=== PATIENT | female | born 1940 | race African-American/Black ===

== ENCOUNTER 2019-11-27 04:32 | Inpatient (IN) | payer OTHER, MEDICAID ==
[~2019-11-27] VITALS: Ht 165.1 cm; Wt 59.5 kg
[2019-11-27 06:38] LABS: BASOPHILS % 0.6 % (0.0-2.0); EOSINOPHILS % 0.1 % (0.0-5.0); HEMATOCRIT. 38.7 % (36.0-48.0); HEMOGLOBIN. 13.3 g/dL (12.0-16.0); LYMPHOCYTES % 19.9 % (20.0-50.0); MEAN CORPUSCULAR HEMOGLOBIN 29.2 pg (28.0-32.0); MEAN CORPUSCULAR VOLUME 84.8 fL (81.0-99.0); MEAN PLATELET VOLUME 7.4 fl (7.4-10.4); MONOCYTES % 10.9 % (2.0-8.0); NEUTROPHILS % 68.5 % (40.0-76.0); PLATELET 263 x1000/uL (130-400); RED BLOOD CELL COUNT 4.56 mill/uL (4.2-5.4); RED CELL DISTRIBUTION WIDTH 12.6 % (11.6-14.6)
[2019-11-27 06:45] LABS: CHLORIDE 109 mEq/L (98-107)
[2019-11-27 06:50] LABS: ETHANOL BLOOD < 10 mg/dL
[2019-11-27 07:20] LABS: CLARITY URINE CLEAR (CLEAR); COLOR URINE DARK YELLOW (YELLOW); KETONES URINE 2+ (NEGATIVE); LEUKOCYTE ESTERASE URINE NEGATIVE (NEGATIVE); NITRITE URINE NEGATIVE (NEGATIVE); OCCULT BLOOD URINE 1+ (NEGATIVE); PROTEIN URINE 2+ (NEGATIVE); SPECIFIC GRAVITY URINE 1.025 (1.005-1.030)
[2019-11-27 08:51] LABS: *BENZODIAZEPINES SCREEN URINE PRESUMTIVE POSITIVE (NEGATIVE); *COCAINE SCREEN URINE NEGATIVE (NEGATIVE); METHADONE URINE SCREEN NEGATIVE (NEGATIVE); OPIATES URINE SCREEN NEGATIVE (NEGATIVE)
[2019-11-27 08:52] LABS: *AMPHETAMINES SCREEN URINE NEGATIVE (NEGATIVE); *BARBITURATES SCREEN URINE NEGATIVE (NEGATIVE); CANNABINOID URINE SCREEN NEGATIVE (NEGATIVE); PHENCYCLIDINE URINE SCREEN NEGATIVE (NEGATIVE)
[2019-11-27] MEDS ORDERED: HALOPERIDOL LACTATE 5MG/ML VIAL IM ONE ×2 (10:43→10:45)
[2019-11-27] MEDS ORDERED: HALOPERIDOL 5MG TABLET PO ONE (11:30)
[2019-11-27] MEDS ORDERED: ACETAMINOPHEN 650MG SUPP PR PRN (14:15)
[2019-11-27] MEDS ORDERED: ACETAMINOPHEN 325MG TABLET PO PRN (14:15)
[2019-11-27] MEDS ORDERED: MAGNESIUM/ALUMINUM HYDROXIDE/SIMETHICONE 30ML UDC PO PRN (14:15)
[2019-11-27] MEDS ORDERED: DOCUSATE SODIUM 100MG CAPSULE PO PRN (14:15)
[2019-11-27] MEDS ORDERED: ONDANSETRON HCL 4MG/2ML INJ IV PRN (14:15)
[2019-11-27] MEDS ORDERED: IPRATROPIUM/ALBUTEROL 0.5-3(2.5)MG/3ML NEB NEB PRN (14:15)
[2019-11-27] MEDS ORDERED: GUAIFENESIN 200MG/10ML SUGAR FREE UDC PO PRN (14:15)
[2019-11-27] MEDS ORDERED: HYDRALAZINE 20MG/ML VIAL IV PRN (14:15)
[2019-11-27] MEDS ORDERED: LORAZEPAM 0.5MG TABLET PO PRN (14:15)
[2019-11-27] MEDS ORDERED: HYDROCODONE/ACETAMINOPHEN 5/325MG TABLET PO PRN (14:15)
[2019-11-27 15:29] VITALS: BP 164/66
[2019-11-27 16:00] VITALS: BP 157/73
[2019-11-27] MEDS: SODIUM CHLORIDE 0.45% 1,000 ML IV SCH (17:38)
[2019-11-27 20:00] VITALS: BP 88/60
[2019-11-27] MEDS: FAMOTIDINE 20MG TABLET PO SCH (21:10)
[2019-11-28] VITALS: BP 151/87
[2019-11-28 01:02] LABS: CREATINE KINASE MB FRACTION 10.1 ng/mL (0.5-3.6)
[2019-11-28 04:00] VITALS: BP 172/103
[2019-11-28 06:13] LABS: CHLORIDE 107 mEq/L (98-107)
[2019-11-28 06:17] LABS: BASOPHILS % 0.6 % (0.0-2.0); EOSINOPHILS % 0.8 % (0.0-5.0); HEMATOCRIT. 36.3 % (36.0-48.0); HEMOGLOBIN. 12.7 g/dL (12.0-16.0); LYMPHOCYTES % 29.7 % (20.0-50.0); MEAN CORPUSCULAR HEMOGLOBIN 29.3 pg (28.0-32.0); MEAN CORPUSCULAR VOLUME 83.8 fL (81.0-99.0); MEAN PLATELET VOLUME 7.5 fl (7.4-10.4); MONOCYTES % 11.6 % (2.0-8.0); NEUTROPHILS % 57.3 % (40.0-76.0); PLATELET 258 x1000/uL (130-400); RED BLOOD CELL COUNT 4.33 mill/uL (4.2-5.4); RED CELL DISTRIBUTION WIDTH 12.7 % (11.6-14.6)
[2019-11-28 06:23] LABS: LDL CHOLESTEROL 122 mg/dL (5-100)
[2019-11-28 06:24] LABS: CREATINE KINASE 856 IU/L (26-192); CREATINE KINASE MB FRACTION 8.5 ng/mL (0.5-3.6); HDL CHOLESTEROL 92 mg/dL (40-59)
[2019-11-28 06:25] LABS: T4 FREE 0.98 ng/dL (0.76-1.46)
[2019-11-28] MEDS: SODIUM CHLORIDE 0.45% 1,000 ML IV SCH (06:26)
[2019-11-28 08:00] VITALS: BP 151/94
[2019-11-28] MEDS: ASPIRIN 81MG EC TABLET PO SCH (09:00)
[2019-11-28] MEDS ORDERED: POTASSIUM CHLORIDE 20MEQ TABLET SR PO NR (11:45)
[2019-11-28 12:00] VITALS: BP 148/115
[2019-11-28] MEDS ORDERED: LORAZEPAM 2MG/ML CPJ IV PRN (12:15)
[2019-11-28] MEDS: HALOPERIDOL LACTATE 5MG/ML VIAL IM PRN ×2 (12:30→22:13)
[2019-11-28 16:00] VITALS: BP 179/104
[2019-11-28 20:00] VITALS: BP 175/106
[2019-11-28] MEDS: ATORVASTATIN CALCIUM 20MG TABLET PO SCH (20:05)
[2019-11-28] MEDS: FAMOTIDINE 20MG TABLET PO SCH (20:05)
[2019-11-29] VITALS (8 sets, daily range): BP systolic 115–179; BP diastolic 61–87
[2019-11-29] MEDS: SODIUM CHLORIDE 0.45% 1,000 ML IV SCH ×2 (00:08→20:00)
[2019-11-29] MEDS: HALOPERIDOL LACTATE 5MG/ML VIAL IM PRN (07:57)
[2019-11-29] MEDS: ASPIRIN 81MG EC TABLET PO SCH (09:08)
[2019-11-29] MEDS: CLONIDINE 0.1MG TABLET PO PRN (09:08)
[2019-11-29 15:54] LABS: BASOPHILS % 0.7 % (0.0-2.0); EOSINOPHILS % 1.3 % (0.0-5.0); HEMATOCRIT. 33.5 % (36.0-48.0); HEMOGLOBIN. 11.6 g/dL (12.0-16.0); LYMPHOCYTES % 35.3 % (20.0-50.0); MEAN PLATELET VOLUME 7.1 fl (7.4-10.4); MONOCYTES % 11.8 % (2.0-8.0); NEUTROPHILS % 50.9 % (40.0-76.0); PLATELET 224 x1000/uL (130-400); RED BLOOD CELL COUNT 3.99 mill/uL (4.2-5.4); RED CELL DISTRIBUTION WIDTH 12.7 % (11.6-14.6)
[2019-11-29 16:02] LABS: CHLORIDE 107 mEq/L (98-107)
[2019-11-29] MEDS: FAMOTIDINE 20MG TABLET PO SCH (21:33)
[2019-11-29] MEDS: ATORVASTATIN CALCIUM 20MG TABLET PO SCH (21:33)
[2019-11-30] VITALS (7 sets, daily range): BP systolic 122–174; BP diastolic 61–74
[2019-11-30 05:55] LABS: BASOPHILS % 0.7 % (0.0-2.0); EOSINOPHILS % 1.8 % (0.0-5.0); HEMATOCRIT. 34.7 % (36.0-48.0); HEMOGLOBIN. 12.1 g/dL (12.0-16.0); LYMPHOCYTES % 49.5 % (20.0-50.0); MEAN CORPUSCULAR HEMOGLOBIN 29.5 pg (28.0-32.0); MEAN CORPUSCULAR VOLUME 84.5 fL (81.0-99.0); MONOCYTES % 11.5 % (2.0-8.0); NEUTROPHILS % 36.5 % (40.0-76.0); PLATELET 221 x1000/uL (130-400); RED CELL DISTRIBUTION WIDTH 12.4 % (11.6-14.6)
[2019-11-30 07:18] LABS: CHLORIDE 109 mEq/L (98-107)
[2019-11-30] MEDS: ASPIRIN 81MG EC TABLET PO SCH (08:02)
[2019-11-30] MEDS: SODIUM CHLORIDE 0.45% 1,000 ML IV SCH (08:02)
[2019-11-30] MEDS: CLONIDINE 0.1MG TABLET PO PRN (17:09)
[2019-11-30] MEDS ORDERED: AMLODIPINE 5MG TABLET PO SCH (21:00)
[2019-11-30] MEDS: MEMANTINE HCL 5MG TABLET PO SCH (21:40)
[2019-11-30] MEDS: ATORVASTATIN CALCIUM 20MG TABLET PO SCH (21:40)
[2019-11-30] MEDS: FAMOTIDINE 20MG TABLET PO SCH (21:40)
[2019-12-01] VITALS (7 sets, daily range): BP systolic 141–178; BP diastolic 64–88
[2019-12-01 06:39] LABS: PROTHROMBIN TIME 10.6 sec (9.6-11.0)
[2019-12-01 06:42] LABS: HEPATITIS B SURFACE ANTIGEN NEGATIVE
[2019-12-01 06:45] LABS: VITAMIN B12 SERUM 290 pg/mL (211-911)
[2019-12-01 07:11] LABS: HEPATITIS A AB IGM NEGATIVE (NEGATIVE)
[2019-12-01] MEDS ORDERED: AMLODIPINE 5MG TABLET PO SCH (09:00)
[2019-12-01] MEDS: ASPIRIN 81MG EC TABLET PO SCH (09:29)
[2019-12-01] MEDS: MEMANTINE HCL 5MG TABLET PO SCH (09:29)
[2019-12-01] MEDS: CLONIDINE 0.1MG TABLET PO PRN (09:33)
[2019-12-01] MEDS ORDERED: CLON0.1T MT (13:17)
[2019-12-01] MEDS ORDERED: ASPI-1497 MT (13:17)
[2019-12-01] MEDS ORDERED: ATOR20TA MT (13:17)
[2019-12-01] MEDS ORDERED: MEMA5TAB7 MT (13:17)
[2019-12-01] MEDS ORDERED: AMLO10TA4 MT (13:17)
[2019-12-01] MEDS ORDERED: MULTIVITAMINS,THER W-MINERALS TABLET PO SCH (19:15)
[2019-12-02] MEDS ORDERED: AMLODIPINE 10MG TABLET PO SCH (09:00)
== END 2019-12-01 21:42 | disposition home health service (06) | DRG 64 ==
LOC: EDBD 04:32 → ER 04:32 → 6WST 11:51 → EDBEDREQSVC 11:56 → ENRESERV 12:43 → SUPCPDRO 13:06 → 6WST 16:00
PROVIDERS: ADMIT Internal Medicine; ATTEND Internal Medicine
DX: I63.9 Cerebral infarction, unspecified (principal); I21.4 Non-ST elevation (NSTEMI) myocardial infarction; I50.33 Acute on chronic diastolic (congestive) heart failure; G93.40 Encephalopathy, unspecified; E87.2 Acidosis; F01.51 Vascular dementia, unspecified severity, with behavioral disturbance; I10 Essential (primary) hypertension; E86.0 Dehydration; I70.0 Atherosclerosis of aorta; E78.5 Hyperlipidemia, unspecified; D72.810 Lymphocytopenia; I11.0 Hypertensive heart disease with heart failure; R73.9 Hyperglycemia, unspecified; R80.9 Proteinuria, unspecified; E05.90 Thyrotoxicosis, unspecified without thyrotoxic crisis or storm; R32 Unspecified urinary incontinence; Z86.73 Personal history of transient ischemic attack (TIA), and cerebral infarction without residual deficits; Z78.1 Physical restraint status
CPT/HCPCS: 36415; 70551; 71045; 74176; 80048; 80053; 80061; 80305; 80307; 80320; 80329; 81003; 82140; 82550; 82553; 82607; 83036; 83540; 83550; 83605; 84439; 84443; 84484; 85025; 86705; 86709; 86803; 87340; 93005; 93306; 93880; 97162; 97530; 99285; J1630; J2060; G0480